=== PATIENT | female | born 1960 | race Caucasian/White ===

== ENCOUNTER 2016-11-03 13:06 | Outpatient (CLI) | payer OTHER ==
--- NOTE | 2016-11-03 15:01 | DIAGNOSTIC IMAGING REPORT ---
PROCEDURE: CT CERVICAL SPINE W/O CONTRAST INDICATION: Neck pain TECHNIQUE: Noncontrast axial images with sagittal and coronal reformations. COMPARISON: Cervical MRI 02/20/2016 FINDINGS: Artificial disc replacement at C4-5 and C5-6 C1-2: Normal appearance. C2-3: Normal appearance. C3-4: Mild right posterior disc bulge. No spinal or foraminal stenosis. C4-5: Artificial disc There is moderate bilateral of foraminal and spinal stenosis. C5-6: Artificial disc. There is severe bilateral foraminal stenosis and moderate spinal stenosis. C6-7: Small right posterior disc bulging/spur complex with facet arthropathy and mild right foraminal stenosis. No spinal stenosis. C7-T1: Normal appearance. IMPRESSION: 1. C4-5 artificial disc with moderate bilateral foraminal and spinal stenosis 2. C5-6 artificial disc with severe bilateral foraminal stenosis and moderate spinal stenosis.
== END 2016-11-03 23:00 ==
LOC: CT SRH 13:06
DX: M48.02 Spinal stenosis, cervical region (principal)